=== PATIENT | female | born 1975 | race Caucasian/White ===

== ENCOUNTER 2017-03-02 13:05 | Emergency (ER) | payer OTHER ==
[~2017-03-02] VITALS: Ht 175.3 cm; Wt 71.0 kg
[2017-03-02 13:07] VITALS: BP 114/69
== END 2017-03-02 15:14 | disposition home or self-care (01) ==
LOC: ED 15:00
DX: J20.9 Acute bronchitis, unspecified (principal); K12.0 Recurrent oral aphthae; Z88.0 Allergy status to penicillin; Z88.8 Allergy status to other drugs, medicaments and biological substances
CPT/HCPCS: 71020; 87081; 87147; 87880; 99285

== ENCOUNTER 2018-12-04 00:16 | Emergency (ER) | payer MEDICAID, OTHER ==
[~2018-12-04] VITALS: Ht 175.3 cm; Wt 68.0 kg
[2018-12-04 01:05] LABS: HCG UR SG 1.005 (1.003-1.030); MICROSCOPIC AUTO
[2018-12-04 01:08] LABS: CULTURE INDICATED? YES
--- NOTE | 2018-12-04 02:10 | NUR ---
PT HAS REMOVED PER BP AND PULSE OX. PT REFUSING VITALS AT THIS TIME.
[2018-12-04 02:57] VITALS: BP 131/84
--- NOTE | 2018-12-04 02:58 | NUR ---
PT REQUIRING MUCH ENCOURAGEMENT TO GET OUT OF BED AND GET DRESSED. PT HAS BEEN GIVEN DC INSTRUCTIONS.
== END 2018-12-04 02:59 | disposition home or self-care (01) ==
LOC: ED 01:21
DX: S02.40DA Maxillary fracture, left side, initial encounter for closed fracture (principal); S09.90XA Unspecified injury of head, initial encounter; M79.641 Pain in right hand; M54.2 Cervicalgia; M25.552 Pain in left hip; F10.10 Alcohol abuse, uncomplicated; Y08.89XA Assault by other specified means, initial encounter; Y93.89 Activity, other specified; Y92.410 Unspecified street and highway as the place of occurrence of the external cause; Y99.8 Other external cause status
CPT/HCPCS: 70450; 70486; 72125; 81001; 81025; 87077; 87086; 87186; 99284

== ENCOUNTER 2019-04-17 19:13 | Emergency (ER) | payer MEDICAID ==
[~2019-04-17] VITALS: Ht 162.6 cm; Wt 62.0 kg
[~2019-04-17 19:13] MED LIST: ALBU1.25 NEB; CEPH500T PO; GABA300C10 PO; SERT-237 PO; [UNRECOGNIZED DRUG - OTHER]; [UNRECOGNIZED DRUG - OTHER]; [UNRECOGNIZED DRUG - OTHER]
--- NOTE | 2019-04-17 20:35 | NUR ---
PT C/O SOB FOR LAST COUPLE HOURS, DOESN'T HAVE HER INHALER. PT WISPERING WHEN SHE TALKS. RESP UNLABORED, LUNGS CLEAR, PT RESTING IN BETWEEN QUESTIONS. STATES SHE'S HAD 1 PINT OF ETOH TODAY. CONNECTED TO MONITORING. FALL PRECAUTIONS IN PLACE. CALL LIGHT IN REACH. AWAITING ORDERS AT THIS TIME.
--- NOTE | 2019-04-17 21:00 | NUR ---
PT HYPOXIC, PT PLACED ON O2 VIA NC. INFORMED.
[2019-04-17] MEDS ORDERED: KETOROLAC 30 MG/1 ML IM ONE (21:30)
[2019-04-17] MEDS ORDERED: DEXAMETHASONE 4 MG/ML, 1ML PO ONE (21:30)
[2019-04-17] MEDS ORDERED: KETOROLAC 30 MG/1 ML ONE (22:15)
[2019-04-17] MEDS ORDERED: DEXAMETHASONE 4 MG/ML, 5ML ONE (22:16)
[2019-04-17 22:20] LABS: BASOPHILS # (AUTO) 0.05 x10^3/uL (0-0.1); BASOPHILS % (AUTO) 0 % (0-1); EOSINOPHILS % (AUTO) 3 % (1-7); LYMPHOCYTES # (AUTO) 2.28 x10^3/uL (1-3.4); LYMPHOCYTES % (AUTO) 20 % (22-44); MD NO; MEAN CORPUSCULAR HEMOGLOBIN 31.7 pg (27.0-34.8); MEAN CORPUSCULAR HGB CONC 32.8 g/dL (32.4-35.8); MEAN CORPUSCULAR VOLUME 96.7 fL (80-100); MEAN PLATELET VOLUME 8.1 fL (7.4-10.4); MONOCYTES # (AUTO) 0.59 x10^3/uL (0.2-0.8); MONOCYTES % (AUTO) 5 % (2-9); NEUTROPHILS # (AUTO) 8.07 x10^3/uL (1.8-6.8); NEUTROPHILS % (AUTO) 72 % (42-75); PLATELET COUNT 257 x10^3/uL (130-400); RED CELL DISTRIBUTION WIDTH 16.1 % (9.6-15.2)
--- NOTE | 2019-04-17 22:29 | NUR ---
MEDS ADMINSITERED PER AUG. PT RESTING ON JEFF.
[2019-04-17 22:53] LABS: ALBUMIN 3.6 g/dL (3.4-5.0); CREATININE 0.79 mg/dL (0.55-1.02)
[2019-04-17 23:26] LABS: ANION GAP 10 mmol/L (5-15); CALCIUM 8.6 mg/dL (8.5-10.1); CHLORIDE 112 mmol/L (98-107); TROPONIN I < 0.015 ng/mL (0.000-0.045)
--- NOTE | 2019-04-17 23:32 | NUR ---
PT SLEEPING ON ROX[place]AN. KARI.
--- NOTE | 2019-04-17 23:42 | NUR ---
PT TAKEN TO CT
--- NOTE | 2019-04-17 23:53 | NUR ---
PT RETURNED FROM CT. PT RECONNECTED TO MONITORING. KARI.
[2019-04-17] MEDS ORDERED: OMNIPAQUE 350 MG/ML, 100ML BOTTLE ONE (23:57)
--- NOTE | 2019-04-17 23:57 | NUR ---
report from garth assumed care of pt at this time
[2019-04-18 00:33] VITALS: BP 111/77
--- NOTE | 2019-04-18 00:44 | NUR ---
BREAK RN: PT RESTING CALMLY IN BED WTIH EYES CLOSED. ERP IN TALKING WITH PT AT THIS TIME.
== END 2019-04-18 01:02 | disposition home or self-care (01) ==
LOC: ED 22:43
DX: R06.00 Dyspnea, unspecified (principal); R06.2 Wheezing; F17.200 Nicotine dependence, unspecified, uncomplicated
CPT/HCPCS: 36415; 70491; 71046; 71275; 80048; 82040; 84484; 84703; 85025; 93005; 96372; 99284; J1100; J1885; Q9967

== ENCOUNTER 2019-05-27 14:28 | Emergency (ER) | payer MEDICAID ==
[~2019-05-27] VITALS: Ht 175.3 cm; Wt 68.3 kg
--- NOTE | 2019-05-27 15:57 | NUR ---
business process associate: Pt to ed room 31 in NAD from lobby at this time
--- NOTE | 2019-05-27 16:16 | NUR ---
TASK RN: IN TO ASSESS PT AND PLACE ON MONITORS. PT ASKED TO GET OUT OF JEANS.
--- NOTE | 2019-05-27 16:20 | NUR ---
TASK RN: PT AMBULATORY WITH STEADY GAIT TO BATHROOM FOR SAMPLE.
--- NOTE | 2019-05-27 16:21 | NUR ---
TASK RN: 43 Y/O FEMALE PRESENTS TO ED WITH C/O N/V. PER PT "I'VE BEEN NAUSEOUS AND THROWING UP FOR A FEW DAYS. I HAVE A UTI. I'M NOT ON MEDS AND I DIDN'T SEE ANYONE. I JUST KNOW I HAVE ONE. I'M AN ALCOHOLIC AND I HAVEN'T BEEN ABLE TO DRINK FOR TWO DAYS." NADN. PT AMBULATORY BACK TO ROOM WITH STEADY GAIT. NO C/O D, TRAUMA, SYNCOPE, CP, SOB. PT PLACED ON CONT PULSE OX, NIBP.
--- NOTE | 2019-05-27 16:48 | NUR ---
TASK RN: BEDSIDE REPORT TO EMERALD KIRKLAND.
[2019-05-27] MEDS ORDERED: SODIUM CHLORIDE 0.9% 1,000ML IVBOLUS ONE (17:00)
[2019-05-27] MEDS ORDERED: ONDANSETRON 2MG/ML, 2ML IVPush ONE ×2 (17:00→18:30)
[2019-05-27] MEDS ORDERED: LORazepam 2 MG/ML, 1ML IVPush ONE (17:00)
[2019-05-27] MEDS ORDERED: PANTOPRAZOLE 40 MG IV IVPush ONE (17:00)
[2019-05-27 17:08] LABS: MICROSCOPIC AUTO
[2019-05-27 17:15] LABS: CULTURE INDICATED? YES
[2019-05-27 17:28] LABS: BASOPHILS # (AUTO) 0.01 x10^3/uL (0-0.1); BASOPHILS % (AUTO) 0 % (0-1); EOSINOPHILS # (AUTO) 0.02 x10^3/uL (0-0.4); EOSINOPHILS % (AUTO) 0 % (1-7); LYMPHOCYTES # (AUTO) 0.43 x10^3/uL (1-3.4); LYMPHOCYTES % (AUTO) 5 % (22-44); MD NO; MEAN CORPUSCULAR HEMOGLOBIN 30.7 pg (27.0-34.8); MEAN CORPUSCULAR HGB CONC 32.8 g/dL (32.4-35.8); MEAN CORPUSCULAR VOLUME 93.5 fL (80-100); MEAN PLATELET VOLUME 7.9 fL (7.4-10.4); MONOCYTES # (AUTO) 0.18 x10^3/uL (0.2-0.8); MONOCYTES % (AUTO) 2 % (2-9); NEUTROPHILS # (AUTO) 8.06 x10^3/uL (1.8-6.8); NEUTROPHILS % (AUTO) 93 % (42-75); PLATELET COUNT 231 x10^3/uL (130-400); RED BLOOD COUNT 4.67 x10^6/uL (3.82-5.3); RED CELL DISTRIBUTION WIDTH 15.4 % (9.6-15.2)
[2019-05-27 17:32] LABS: ALANINE AMINOTRANSFERASE 48 U/L (12-78); ALBUMIN 3.4 g/dL (3.4-5.0); ANION GAP 9 mmol/L (5-15); CALCIUM 8.4 mg/dL (8.5-10.1); CHLORIDE 105 mmol/L (98-107); CREATININE 0.68 mg/dL (0.55-1.02)
[2019-05-27 17:36] LABS: ALKALINE PHOSPHATASE 84 U/L (45-117); BILIRUBIN,TOTAL 0.6 mg/dL (0.2-1.0); TOTAL PROTEIN 7.6 g/dL (6.4-8.2)
[2019-05-27] MEDS ORDERED: LORazepam 2 MG/ML, 1ML ONE (17:36)
[2019-05-27] MEDS ORDERED: PANTOPRAZOLE 40 MG IV ONE (17:36)
[2019-05-27] MEDS ORDERED: ONDANSETRON 2MG/ML, 2ML ONE ×2 (17:36→18:32)
[2019-05-27] MEDS ORDERED: CEFTRIAXONE PMX 1GM/50ML 50 ML ONE (18:04)
[2019-05-27 18:30] VITALS: BP 140/95
[2019-05-27] MEDS ORDERED: CHLORDIAZEPOXIDE 25 MG CAPSULE PO ONE (18:30)
[2019-05-27] MEDS ORDERED: CEFTRIAXONE PMX 1GM/50ML 50 ML IV ONE (18:30)
[2019-05-27] MEDS ORDERED: CHLORDIAZEPOXIDE 25 MG CAPSULE ONE (18:50)
== END 2019-05-27 20:03 | disposition home or self-care (01) ==
LOC: ED 18:21
DX: N30.00 Acute cystitis without hematuria (principal); R11.2 Nausea with vomiting, unspecified; F10.20 Alcohol dependence, uncomplicated; F17.200 Nicotine dependence, unspecified, uncomplicated; Y90.0 Blood alcohol level of less than 20 mg/100 ml
CPT/HCPCS: 36415; 71045; 80053; 81001; 83690; 84703; 85025; 87077; 87086; 87186; 96365; 96375; 96376; 99284; C9113; J0696; J2060; J2405; J7030

== ENCOUNTER 2019-07-08 19:01 | Emergency (ER) | payer MEDICAID ==
[~2019-07-08] VITALS: Ht 175.3 cm; Wt 69.9 kg
--- NOTE | 2019-07-08 19:11 | NUR ---
NO ANSWER TIMES ONE
[2019-07-08 20:26] VITALS: BP 126/78
[2019-07-08] MEDS ORDERED: SODIUM CHLORIDE FLUSH 10ML SYR IVF ONE (20:30)
[2019-07-08 20:58] LABS: MEAN CORPUSCULAR HEMOGLOBIN 30.5 pg (27.0-34.8); MEAN CORPUSCULAR HGB CONC 33.2 g/dL (32.4-35.8); MEAN PLATELET VOLUME 8.5 fL (7.4-10.4); PLATELET COUNT 331 x10^3/uL (130-400); RED BLOOD COUNT 3.88 x10^6/uL (3.82-5.3)
[2019-07-08 21:07] LABS: ALANINE AMINOTRANSFERASE 31 U/L (12-78); ALBUMIN 2.9 g/dL (3.4-5.0); ANION GAP 10 mmol/L (5-15); CALCIUM 8.7 mg/dL (8.5-10.1); CHLORIDE 108 mmol/L (98-107); CREATININE 0.77 mg/dL (0.55-1.02)
[2019-07-08 21:08] LABS: MICROSCOPIC INDICATED
[2019-07-08 21:09] LABS: CULTURE INDICATED? YES
[2019-07-08 21:12] LABS: ALKALINE PHOSPHATASE 99 U/L (45-117); BILIRUBIN,TOTAL 0.2 mg/dL (0.2-1.0); TOTAL PROTEIN 7.6 g/dL (6.4-8.2); TROPONIN I < 0.015 ng/mL (0.000-0.045)
--- NOTE | 2019-07-08 21:33 | NUR ---
NIL X2
[2019-07-08 21:42] LABS: BASOPHILS # (AUTO) 0.03 x10^3/uL (0-0.1); BASOPHILS % (AUTO) 0 % (0-1); EOSINOPHILS # (AUTO) 0.06 x10^3/uL (0-0.4); EOSINOPHILS % (AUTO) 0 % (1-7); LYMPHOCYTES # (AUTO) 1.21 x10^3/uL (1-3.4); LYMPHOCYTES % (AUTO) 6 % (22-44); MD SCAN; MONOCYTES # (AUTO) 0.36 x10^3/uL (0.2-0.8); MONOCYTES % (AUTO) 2 % (2-9); NEUTROPHILS # (AUTO) 20.27 x10^3/uL (1.8-6.8); NEUTROPHILS % (AUTO) 93 % (42-75)
--- NOTE | 2019-07-08 22:05 | NUR ---
LOBBY CHECKED, NOT IN LOBBY
--- NOTE | 2019-07-08 22:17 | NUR ---
ATTEMPT TO CONTACT PT VIA PHONE, NUMBER LISTED DOES NOT TAKE INCOMING CALLS, PT LISTED CONTACT DOES NOT HAVE A PHONE NUMBER.
--- NOTE | 2019-07-08 22:17 | NUR ---
[id number]
--- NOTE | 2019-07-08 22:35 | NUR ---
NOT IN LOBBY
== END 2019-07-08 23:05 | disposition left against medical advice (07) ==
LOC: ED 22:54
DX: R10.11 Right upper quadrant pain (principal)
CPT/HCPCS: 36415; 71045; 80053; 80307; 81001; 83690; 84484; 85025; 87086; 93005; 99284

== ENCOUNTER 2019-07-09 03:46 | Inpatient (IN) | payer MEDICAID ==
[~2019-07-09] VITALS: Ht 175.3 cm; Wt 72.1 kg
--- NOTE | 2019-07-09 03:59 | NUR ---
THIS IS A 43Y F THAT COMES IN WITH COMPLAINTS OF RIGHT UPPER QUAD PAIN. PT STS SHE CANNOT TAKE A DEEP BREATH WITHOUT SHARP PAINS. PT CONNECTED TO MONITORING, KARI CHICAS, FRIEND AT BEDSIDE AWAITING FURTHER ORDERS AT THIS TIME
[2019-07-09] MEDS ORDERED: ONDANSETRON 2MG/ML, 2ML ONE (04:06)
[2019-07-09] MEDS ORDERED: MORPHINE SULFATE 4 MG/ML, 1ML ONE (04:06)
[2019-07-09] MEDS ORDERED: MORPHINE SULFATE 4 MG/ML, 1ML IVPush PRN (04:30)
[2019-07-09] MEDS ORDERED: ONDANSETRON 2MG/ML, 2ML IVPush ONE (04:30)
--- NOTE | 2019-07-09 05:11 | NUR ---
PT BACK FROM US AT THIS TIME
[2019-07-09 05:12] LABS: ALBUMIN 3.2 g/dL (3.4-5.0); ANION GAP 8 mmol/L (5-15); CALCIUM 8.6 mg/dL (8.5-10.1); CHLORIDE 108 mmol/L (98-107)
[2019-07-09 05:16] LABS: ALANINE AMINOTRANSFERASE 31 U/L (12-78); ALKALINE PHOSPHATASE 101 U/L (45-117); BILIRUBIN,TOTAL 0.3 mg/dL (0.2-1.0); CREATININE 0.69 mg/dL (0.55-1.02); TOTAL PROTEIN 7.7 g/dL (6.4-8.2)
[2019-07-09] MEDS ORDERED: POTASSIUM CHLORIDE 40 MEQ in SODIUM CHLORIDE 0.9% 500 ML IV ONE (05:30)
--- NOTE | 2019-07-09 05:33 | NUR ---
MED REQ SENT TO PHARMACY
[2019-07-09 05:40] LABS: BASOPHILS # (AUTO) 0.05 x10^3/uL (0-0.1); BASOPHILS % (AUTO) 0 % (0-1); EOSINOPHILS # (AUTO) 0.12 x10^3/uL (0-0.4); EOSINOPHILS % (AUTO) 1 % (1-7); LYMPHOCYTES # (AUTO) 0.98 x10^3/uL (1-3.4); LYMPHOCYTES % (AUTO) 7 % (22-44); MD NO; MEAN CORPUSCULAR HEMOGLOBIN 30.8 pg (27.0-34.8); MEAN CORPUSCULAR HGB CONC 33.2 g/dL (32.4-35.8); MEAN CORPUSCULAR VOLUME 92.7 fL (80-100); MEAN PLATELET VOLUME 8.8 fL (7.4-10.4); MONOCYTES # (AUTO) 0.27 x10^3/uL (0.2-0.8); MONOCYTES % (AUTO) 2 % (2-9); NEUTROPHILS # (AUTO) 13.47 x10^3/uL (1.8-6.8); NEUTROPHILS % (AUTO) 91 % (42-75); PLATELET COUNT 311 x10^3/uL (130-400); RED BLOOD COUNT 3.78 x10^6/uL (3.82-5.3); RED CELL DISTRIBUTION WIDTH 15.9 % (9.6-15.2)
--- NOTE | 2019-07-09 05:53 | NUR ---
IVF STARTED, PT PROVIDED WARM BLANKET AT BEDSIDE TO REASSESS PT AND DISCUSS POC
[2019-07-09 06:20] LABS: TROPONIN I < 0.015 ng/mL (0.000-0.045)
--- NOTE | 2019-07-09 06:48 | NUR ---
report received from chen akins.
--- NOTE | 2019-07-09 07:34 | NUR ---
USPIV EST BY CARMEN CORBIN AT THIS TIME. PT TOLERATED WELL.
--- NOTE | 2019-07-09 07:36 | NUR ---
POTASSIUM INFUSING AT THIS TIME. PT TOLERATED WELL.
--- NOTE | 2019-07-09 08:15 | NUR ---
PT IN CT AT THIS TIME.
--- NOTE | 2019-07-09 08:25 | NUR ---
PT BACK TO ROOM FROM CT AT THIS TIME.
[2019-07-09] MEDS ORDERED: SODIUM CHLORIDE FLUSH 10ML SYR IVF PRN (09:00)
[2019-07-09] MEDS ORDERED: ONDANSETRON 2MG/ML, 2ML IVPush PRN (09:00)
[2019-07-09] MEDS ORDERED: morphine SULFATE 10 MG/ML, 1ML IVPush PRN (09:00)
[2019-07-09] MEDS ORDERED: ACETAMINOPHEN 325 MG TABLET PO PRN (09:00)
[2019-07-09] MEDS ORDERED: ENOXAPARIN 40 MG/0.4 ML ONE (09:01)
[2019-07-09] MEDS: SODIUM CHLORIDE 0.9% 1,000 ML IV SCH ×3 (09:04→23:17)
[2019-07-09] MEDS: ENOXAPARIN 40 MG/0.4 ML SQ SCH (09:04)
--- NOTE | 2019-07-09 09:05 | NUR ---
PT MEDICATED PER EMAR. NS INFUSING WITH POTTASIUM. PT TOLERATED WELL. HOSPITALIST AT BEDSIDE TO EVALUATE AT THIS TIME.
--- NOTE | 2019-07-09 09:37 | NUR ---
report given to mercedez akins. all questions answered.
[2019-07-09 09:40] LABS: HCT (SEDRATE) 35.1 % (34.6-47.8)
--- NOTE | 2019-07-09 09:50 | NUR ---
PT AMB TO BR AND BACK TO ROOM WITH STEADY GAIT. UA SENT.
[2019-07-09 10:04] VITALS: BP 111/75
[2019-07-09 10:08] LABS: AMPHETAMINE SCREEN, URINE Positive (Negative); BARBITURATE SCREEN, URINE Negative (Negative); BENZODIAZEPINE SCREEN, URINE Positive (Negative); CANNABINOID SCREEN, URINE Negative (Negative); COCAINE SCREEN, URINE Negative (Negative); METHADONE SCREEN, URINE Negative (Negative); OPIATE SCREEN, URINE Positive (Negative)
[2019-07-09] MEDS: CHLORDIAZEPOXIDE 10 MG CAPSULE PO PRN (10:26)
[2019-07-09 12:19] VITALS: BP 106/69
[2019-07-09] MEDS: CHLORDIAZEPOXIDE 25 MG CAPSULE PO PRN ×2 (16:42→21:18)
[2019-07-09] MEDS: HYDROcodone/APAP 5/325 TABLET PO PRN (19:09)
[2019-07-09 20:18] VITALS: BP 108/73
[2019-07-10] MEDS: CHLORDIAZEPOXIDE 25 MG CAPSULE PO PRN ×5 (01:55→18:44)
[2019-07-10 03:54] VITALS: BP 102/70
[2019-07-10] MEDS: CHLORDIAZEPOXIDE 10 MG CAPSULE PO PRN (04:18)
[2019-07-10 04:47] LABS: BASOPHILS % (AUTO) 0 % (0-1); EOSINOPHILS # (AUTO) 0.31 x10^3/uL (0-0.4); EOSINOPHILS % (AUTO) 6 % (1-7); LYMPHOCYTES # (AUTO) 0.97 x10^3/uL (1-3.4); LYMPHOCYTES % (AUTO) 17 % (22-44); MD NO; MEAN CORPUSCULAR HEMOGLOBIN 30.6 pg (27.0-34.8); MEAN CORPUSCULAR HGB CONC 32.6 g/dL (32.4-35.8); MEAN CORPUSCULAR VOLUME 93.9 fL (80-100); MEAN PLATELET VOLUME 8.5 fL (7.4-10.4); MONOCYTES # (AUTO) 0.33 x10^3/uL (0.2-0.8); MONOCYTES % (AUTO) 6 % (2-9); NEUTROPHILS # (AUTO) 3.98 x10^3/uL (1.8-6.8); NEUTROPHILS % (AUTO) 71 % (42-75); PLATELET COUNT 270 x10^3/uL (130-400); RED BLOOD COUNT 3.41 x10^6/uL (3.82-5.3); RED CELL DISTRIBUTION WIDTH 16.5 % (9.6-15.2)
[2019-07-10 04:53] LABS: ALBUMIN 2.3 g/dL (3.4-5.0); ANION GAP 6 mmol/L (5-15); CALCIUM 8.2 mg/dL (8.5-10.1); CHLORIDE 110 mmol/L (98-107)
[2019-07-10 04:59] LABS: ALANINE AMINOTRANSFERASE 17 U/L (12-78); ALKALINE PHOSPHATASE 90 U/L (45-117); BILIRUBIN,TOTAL 0.3 mg/dL (0.2-1.0); CREATININE 0.61 mg/dL (0.55-1.02); TOTAL PROTEIN 6.2 g/dL (6.4-8.2)
[2019-07-10] MEDS: SODIUM CHLORIDE 0.9% 1,000 ML IV SCH ×2 (05:32→12:11)
[2019-07-10 07:13] VITALS: BP 91/62
[2019-07-10] MEDS ORDERED: LORazepam 2 MG/ML, 1ML IV PRN ×3 (08:30)
[2019-07-10] MEDS ORDERED: LORazepam 1MG TABLET PO PRN ×3 (08:30)
[2019-07-10] MEDS ORDERED: LORazepam 0.5MG TABLET PO PRN (08:30)
[2019-07-10] MEDS ORDERED: POTASSIUM CHLORIDE 20 MEQ TAB.ER.PRT PO SCH (08:30)
[2019-07-10] MEDS ORDERED: THIAMINE 50MG TABLET PO SCH (09:00)
[2019-07-10] MEDS ORDERED: PANTOPRAZOLE 40 MG IV IVPush SCH (09:00)
[2019-07-10] MEDS: MULTIVITAMINS/MINERALS TABLET PO SCH (10:21)
[2019-07-10] MEDS: MULTIVITAMIN 1 TABLET PO SCH (10:21)
[2019-07-10] MEDS: THIAMINE 100MG TABLET PO SCH ×2 (10:21→22:17)
[2019-07-10] MEDS: ENOXAPARIN 40 MG/0.4 ML SQ SCH (10:22)
[2019-07-10] MEDS: LIDODERM 5% PATCH TD SCH (10:22)
[2019-07-10] MEDS: CYCLOBENZAPRINE 10 MG TABLET PO SCH ×3 (10:22→22:17)
[2019-07-10] MEDS: NICOTINE 14MG/24 HR PATCH.TD24 TD SCH (10:22)
[2019-07-10] MEDS: FOLIC ACID 1 MG TABLET PO SCH (10:23)
[2019-07-10] MEDS: HYDROcodone/APAP 5/325 TABLET PO PRN (12:10)
[2019-07-10 12:14] LABS: HCG UR SG 1.006 (1.003-1.030)
[2019-07-10 13:30] VITALS: BP 109/84
[2019-07-10] MEDS: LORazepam 2 MG/ML, 1ML IV PRN ×2 (15:19→18:44)
[2019-07-10 18:36] LABS: MICROSCOPIC AUTO
[2019-07-10 18:44] LABS: CULTURE INDICATED? YES
[2019-07-10 19:15] VITALS: BP 117/79
[2019-07-10] MEDS: LIDODERM REMOVE PATCH NOTE XX SCH (22:17)
[2019-07-11 00:18] VITALS: BP 130/90
[2019-07-11] MEDS: SODIUM CHLORIDE 0.9% 1,000 ML IV SCH (02:10)
[2019-07-11 06:31] LABS: ALANINE AMINOTRANSFERASE 19 U/L (12-78); ALBUMIN 2.2 g/dL (3.4-5.0); ANION GAP 5 mmol/L (5-15); CALCIUM 8.5 mg/dL (8.5-10.1); CHLORIDE 114 mmol/L (98-107); CREATININE 0.58 mg/dL (0.55-1.02)
[2019-07-11 06:33] LABS: ALKALINE PHOSPHATASE 84 U/L (45-117); TOTAL PROTEIN 6.3 g/dL (6.4-8.2)
[2019-07-11 06:36] LABS: MEAN CORPUSCULAR HEMOGLOBIN 30.5 pg (27.0-34.8); MEAN CORPUSCULAR HGB CONC 32.4 g/dL (32.4-35.8); MEAN CORPUSCULAR VOLUME 94.1 fL (80-100); MEAN PLATELET VOLUME 8.3 fL (7.4-10.4); PLATELET COUNT 304 x10^3/uL (130-400); RED BLOOD COUNT 3.89 x10^6/uL (3.82-5.3); RED CELL DISTRIBUTION WIDTH 16.5 % (9.6-15.2)
[2019-07-11 06:37] LABS: BILIRUBIN,TOTAL < 0.1 mg/dL (0.2-1.0)
[2019-07-11 07:03] LABS: BASOPHILS # (AUTO) 0.02 x10^3/uL (0-0.1); BASOPHILS % (AUTO) 0 % (0-1); EOSINOPHILS # (AUTO) 0.39 x10^3/uL (0-0.4); EOSINOPHILS % (AUTO) 7 % (1-7); LYMPHOCYTES # (AUTO) 1.32 x10^3/uL (1-3.4); LYMPHOCYTES % (AUTO) 24 % (22-44); MD SCAN; MONOCYTES # (AUTO) 0.32 x10^3/uL (0.2-0.8); MONOCYTES % (AUTO) 6 % (2-9); NEUTROPHILS # (AUTO) 3.39 x10^3/uL (1.8-6.8); NEUTROPHILS % (AUTO) 62 % (42-75)
[2019-07-11 08:59] VITALS: BP 127/85
[2019-07-11] MEDS: MULTIVITAMIN 1 TABLET PO SCH (09:52)
[2019-07-11] MEDS: ENOXAPARIN 40 MG/0.4 ML SQ SCH (09:52)
[2019-07-11] MEDS: LIDODERM 5% PATCH TD SCH (09:52)
[2019-07-11] MEDS: MULTIVITAMINS/MINERALS TABLET PO SCH (09:52)
[2019-07-11] MEDS: SULFAMETH./TRIMETHOPRIM DS 800MG/160MG TABLET PO SCH ×2 (09:52→21:56)
[2019-07-11] MEDS: NICOTINE 14MG/24 HR PATCH.TD24 TD SCH (09:52)
[2019-07-11] MEDS: THIAMINE 100MG TABLET PO SCH ×2 (09:53→21:56)
[2019-07-11] MEDS: HYDROcodone/APAP 5/325 TABLET PO PRN (09:53)
[2019-07-11] MEDS: CYCLOBENZAPRINE 10 MG TABLET PO SCH ×2 (09:53→16:42)
[2019-07-11] MEDS: FOLIC ACID 1 MG TABLET PO SCH (09:53)
[2019-07-11] MEDS ORDERED: SENNA/DOCUSATE TABLET ONE (11:33)
[2019-07-11] MEDS ORDERED: SENNA/DOCUSATE TABLET PO PRN (12:00)
[2019-07-11 12:35] VITALS: BP 119/81
[2019-07-11] MEDS: GABAPENTIN 300 MG CAPSULE PO SCH ×2 (16:42→21:56)
[2019-07-11] MEDS ORDERED: LORazepam 2 MG/ML, 1ML IVPush ONE (18:30)
[2019-07-11 20:02] VITALS: BP 121/81
[2019-07-11 20:23] LABS: AMPHETAMINE SCREEN, URINE Positive (Negative); BARBITURATE SCREEN, URINE Negative (Negative); BENZODIAZEPINE SCREEN, URINE Positive (Negative); CANNABINOID SCREEN, URINE Negative (Negative); COCAINE SCREEN, URINE Negative (Negative); METHADONE SCREEN, URINE Negative (Negative); OPIATE SCREEN, URINE Negative (Negative)
[2019-07-11] MEDS ORDERED: CYCLOBENZAPRINE 10 MG TABLET PO SCH (21:00)
[2019-07-11] MEDS ORDERED: CYCLOBENZAPRINE 10 MG TABLET ONE (21:50)
[2019-07-11] MEDS ORDERED: THIAMINE 100MG TABLET ONE (21:51)
[2019-07-11] MEDS ORDERED: SULFAMETH./TRIMETHOPRIM DS 800MG/160MG TABLET ONE (21:51)
[2019-07-11] MEDS ORDERED: GABAPENTIN 300 MG CAPSULE ONE (21:52)
[2019-07-11] MEDS: LIDODERM REMOVE PATCH NOTE XX SCH (22:00)
[2019-07-12 00:34] VITALS: BP 130/86
[2019-07-12] MEDS ORDERED: SENNA/DOCUSATE TABLET PO PRN (01:30)
[2019-07-12] MEDS ORDERED: ACETAMINOPHEN 325 MG TABLET PO PRN (01:30)
[2019-07-12] MEDS ORDERED: HYDROcodone/APAP 5/325 TABLET PO PRN (01:30)
[2019-07-12] MEDS ORDERED: LORazepam 2 MG/ML, 1ML IV PRN ×4 (01:30)
[2019-07-12] MEDS ORDERED: ONDANSETRON 2MG/ML, 2ML IVPush PRN (01:30)
[2019-07-12] MEDS ORDERED: LORazepam 0.5MG TABLET PO PRN (01:30)
[2019-07-12] MEDS ORDERED: CHLORDIAZEPOXIDE 10 MG CAPSULE PO PRN (01:30)
[2019-07-12] MEDS ORDERED: LORazepam 1MG TABLET PO PRN ×3 (01:30)
[2019-07-12 06:51] LABS: BASOPHILS # (AUTO) 0.03 x10^3/uL (0-0.1); BASOPHILS % (AUTO) 1 % (0-1); EOSINOPHILS # (AUTO) 0.35 x10^3/uL (0-0.4); EOSINOPHILS % (AUTO) 7 % (1-7); LYMPHOCYTES # (AUTO) 0.74 x10^3/uL (1-3.4); LYMPHOCYTES % (AUTO) 15 % (22-44); MD NO; MEAN CORPUSCULAR HEMOGLOBIN 30.2 pg (27.0-34.8); MEAN CORPUSCULAR HGB CONC 32.7 g/dL (32.4-35.8); MEAN CORPUSCULAR VOLUME 92.1 fL (80-100); MEAN PLATELET VOLUME 8.5 fL (7.4-10.4); MONOCYTES % (AUTO) 6 % (2-9); NEUTROPHILS # (AUTO) 3.64 x10^3/uL (1.8-6.8); NEUTROPHILS % (AUTO) 72 % (42-75); PLATELET COUNT 318 x10^3/uL (130-400); RED BLOOD COUNT 3.76 x10^6/uL (3.82-5.3); RED CELL DISTRIBUTION WIDTH 16.3 % (9.6-15.2)
[2019-07-12 06:57] LABS: CHLORIDE 108 mmol/L (98-107)
[2019-07-12 07:23] LABS: ALANINE AMINOTRANSFERASE 16 U/L (12-78); ALBUMIN 2.5 g/dL (3.4-5.0); ALKALINE PHOSPHATASE 87 U/L (45-117); ANION GAP 6 mmol/L (5-15); BILIRUBIN,TOTAL 0.2 mg/dL (0.2-1.0); CALCIUM 8.4 mg/dL (8.5-10.1); CREATININE 0.66 mg/dL (0.55-1.02); TOTAL PROTEIN 6.6 g/dL (6.4-8.2)
[2019-07-12 07:41] VITALS: BP 122/85
[2019-07-12] MEDS ORDERED: FOLIC ACID 1 MG TABLET PO SCH (09:00)
[2019-07-12] MEDS ORDERED: SULFAMETH./TRIMETHOPRIM DS 800MG/160MG TABLET PO SCH (09:00)
[2019-07-12] MEDS ORDERED: ENOXAPARIN 40 MG/0.4 ML SQ SCH ×2 (09:00)
[2019-07-12] MEDS ORDERED: MULTIVITAMINS/MINERALS TABLET PO SCH (09:00)
[2019-07-12] MEDS ORDERED: THIAMINE 100MG TABLET PO SCH (09:00)
[2019-07-12] MEDS: CYCLOBENZAPRINE 10 MG TABLET PO SCH ×2 (09:06→16:36)
[2019-07-12] MEDS: GABAPENTIN 300 MG CAPSULE PO SCH ×2 (09:06→16:36)
[2019-07-12] MEDS ORDERED: LIDODERM 5% PATCH TD SCH (10:00)
[2019-07-12] MEDS ORDERED: NICOTINE 14MG/24 HR PATCH.TD24 TD SCH (10:00)
[2019-07-12] MEDS ORDERED: AZITHROMYCIN 500 MG TABLET PO ONE ×2 (16:00)
[2019-07-12] MEDS ORDERED: GENTAMICIN 80 MG/2 ML IM ONE (16:30)
[2019-07-12] MEDS ORDERED: ACET325T26 PO (16:49)
[2019-07-12] MEDS ORDERED: FOLI-17 PO (16:49)
[2019-07-12] MEDS ORDERED: LIDO700A20 TD (16:49)
[2019-07-12] MEDS ORDERED: CYCL-259 PO (16:49)
[2019-07-12] MEDS ORDERED: THIA100T67 PO (16:49)
[2019-07-12] MEDS ORDERED: Sulfameth./Trimethoprim Ds PO (16:49)
[2019-07-12 17:00] VITALS: BP 121/81
[2019-07-12] MEDS ORDERED: LIDODERM REMOVE PATCH NOTE XX SCH (22:00)
== END 2019-07-12 20:31 | disposition home or self-care (01) | DRG 690 ==
LOC: ED 04:28 → EDIP 08:53 → 4NE 09:54 → UNDODISIN 07-11 17:54 → 3N 07-11 22:46
PROVIDERS: ADMIT Internal Medicine Infectious Disease; ATTEND Internal Medicine
DX: N39.0 Urinary tract infection, site not specified (principal); F10.239 Alcohol dependence with withdrawal, unspecified; B18.2 Chronic viral hepatitis C; E86.0 Dehydration; E87.6 Hypokalemia; Y90.9 Presence of alcohol in blood, level not specified; F15.90 Other stimulant use, unspecified, uncomplicated; F17.200 Nicotine dependence, unspecified, uncomplicated; I73.00 Raynaud's syndrome without gangrene; J45.909 Unspecified asthma, uncomplicated; K59.00 Constipation, unspecified; K70.9 Alcoholic liver disease, unspecified; K74.60 Unspecified cirrhosis of liver; N83.202 Unspecified ovarian cyst, left side; Z59.0 Homelessness; Z83.3 Family history of diabetes mellitus; Z88.0 Allergy status to penicillin; Z88.8 Allergy status to other drugs, medicaments and biological substances; Z91.013 Allergy to seafood; R07.81 Pleurodynia
CPT/HCPCS: 36415; 71275; 74177; 76700; 78227; 80053; 80307; 81001; 81025; 83690; 83735; 84100; 84484; 85025; 85651; 86140; 86592; 87086; 87491; 87591; 96374; G0378; J1650; J2405; J3480; A9537; C9113; C9898; J1580; J2060; J2270; J7030; J7040

== ENCOUNTER 2019-10-23 20:11 | Emergency (ER) | payer MEDICAID ==
[~2019-10-23] VITALS: Ht 175.3 cm; Wt 69.4 kg
[~2019-10-23 20:11] MED LIST changes: +ACET325T26 PO; +CYCL-259 PO; +FOLI-17 PO; +LIDO700A20 TD; +Sulfameth./Trimethoprim Ds PO; +THIA100T67 PO
--- NOTE | 2019-10-23 20:45 | NUR ---
PT CAME IN CO OF LAZO, BILAT EYE IRRITATION, AND PAINFUL URINATION. PT HAS HX OF ASTHMA AND ETOH ABUSE.
[2019-10-23] MEDS ORDERED: FLUORESCEIN OPHTHALMIC 1 MG STRIP ONE (21:15)
[2019-10-23] MEDS ORDERED: PROPARACAINE OPHTH 0.5%, 15ML ONE (21:15)
[2019-10-23 21:28] LABS: MICROSCOPIC AUTO
[2019-10-23] MEDS ORDERED: FLUORESCEIN OPHTHALMIC 1 MG STRIP RIGHTEYE ONE (21:30)
[2019-10-23] MEDS ORDERED: PROPARACAINE OPHTH 0.5%, 15ML RIGHTEYE ONE (21:30)
[2019-10-23 21:31] VITALS: BP 136/85
[2019-10-23 21:31] LABS: CULTURE INDICATED? YES
--- NOTE | 2019-10-23 21:31 | NUR ---
PT RESTING IN [facility]. PIMENTEL LAMP IN ROOM AWAITING MD ASSESSMENT OF EYE
--- NOTE | 2019-10-23 21:59 | NUR ---
REPORT OF PT FROM EMERALD MANZO AND ASSUMING CARE OF PT AT THIS TIME
--- NOTE | 2019-10-23 23:22 | NUR ---
PT D/C WITH D/C SUMMARY AND SCRIPTS. ALL QUESTIONS ANSWERED. PT DENIES ANY OTHER NEEDS PERTAINING TO THIS VISIT. ALL QUESTIONS ANSWERED. PT AMBULATES TO REGISTRATION DESK WITH STEADY GAIT FOR D/C HOME WITH PARTNER.
== END 2019-10-23 23:25 | disposition home or self-care (01) ==
LOC: ED 21:13
DX: N39.0 Urinary tract infection, site not specified (principal); H10.023 Other mucopurulent conjunctivitis, bilateral; R30.0 Dysuria; Z76.0 Encounter for issue of repeat prescription; R06.02 Shortness of breath
CPT/HCPCS: 71045; 81001; 87086; 99284